=== PATIENT | male | born 1980 | race Caucasian/White ===

== ENCOUNTER 2017-04-10 14:42 | Emergency (ER) | payer BC ==
[2017-04-10] MEDS ORDERED: TETRACAINE HCL 150 DROP BTL ONE (18:13)
--- NOTE | 2017-04-10 18:29 | ERNOTE ---
ENT HPI Presenting Symptoms: other Time Seen by Provider: 04/10/17 18:08 Source: patient Exam Limitations: no limitations - Immun/Allergies/Home Medications Immunizations: IMMUNIZATION HX Immunizations Up to Date Yes History of Influenza Vaccine No Hx Pneumococcal Vaccination No Allergies/Adverse Reactions: Allergies Allergy/AdvReac Type Severity Reaction Status Date / Time No Known Allergies Allergy Verified 04/10/17 14:59 Home Medications: HOME MEDICATIONS NK [No Home Medication] 04/10/17 [Last Taken Unknown] - History of Present Illness Narrative: Patient woke up this morning and his eyes were swollen. He denies any crusting, is not aware of any injuries. 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 Absent: double vision ENT: Present: nasal drainage. Absent: nose congestion Respiratory: Present: cough - chronic (smoker). Absent: shortness of breath Cardiology: Absent: chest pain Gastrointestinal/Abdominal: Absent: nausea, vomiting, abdominal pain Musculoskeletal: Absent: back pain Neurological: Absent: headache, weakness, numbness - Patient's Past Medical History Patient History - Medical: No pertinent hx Patient History - Cardiac/Respiratory: No pertinent hx Patient History - Cancer: No Hx of Cancer Patient History - Surgical Procedures: Other - Social History Smoking Status: Current every day smoker Have you smoked in the past 12 months: Yes - Immunizations Immunizations Up to Date: Yes Hx Pneumococcal Vaccination: No History of Influenza Vaccine: No Physical Exam - Physical Exam General Appearance: Present: wd/wn, alert, no apparent distress Head Exam: Present: normal inspection Eye Exam: Normal inspection: bilateral, PERRL: bilateral, EOMI: bilateral Ears, Nose, Throat: Present: normal ENT inspection, normal pharynx Neck: Present: normal inspection Respiratory: Present: no respiratory distress, normal breath sounds, no accessory muscle use, lungs clear Cardiovascular/Chest: Present: regular rate, rhythm, no murmur Neurological Exam: Present: alert, oriented, normal mood/affect Skin Exam: Present: normal color, warm/dry ED Progress - Vital Signs Patient's Vital Signs:: I have reviewed the patient's vital signs. Vital Signs: Vital Signs 04/10/17 14:57 Temperature 36.5 C Pulse Rate 80 Respiratory 14 Rate Blood Pressure 123/74 O2 Sat by Pulse 98 Oximetry - Progress/Reassessment Chief Complaint: Eye Injury/Trauma Procedures Eye Location: both eyes Tetracaine Drops Administered: Yes Cyclogel 2 Drops Administered: both eyes Eye - Cornea: Bilateral: examined w/fluorescein, fluorescein dye uptake - none, nml inspection Complications: Pt cathi procedure well Departure Clinical Impression: Conjunctivitis, allergic Qualifiers: Laterality: bilateral Qualified Code(s): H10.13 - Acute atopic conjunctivitis, bilateral - Departure Disposition: Home self-care Condition: Good Instructions: Allergic Conjunctivitis, [id number], Form - Excuse from Work, School, or Physical Activity Additional Instructions: continue to use over the counter eye drops or allergy medications Referrals: Vladislav Naylor MD [Staff Physician] -
[2017-04-10 21:58] VITALS: BP 138/82
== END 2017-04-10 18:30 | disposition home or self-care (01) ==
LOC: ER 14:42
DX: H10.13 Acute atopic conjunctivitis, bilateral (principal); F17.200 Nicotine dependence, unspecified, uncomplicated